=== PATIENT | female | born 1930 | race Caucasian/White ===

== ENCOUNTER 2018-04-10 19:19 | Inpatient (IN) | payer OTHER ==
[~2018-04-10] VITALS: Ht 165.1 cm; Wt 103.2 kg
[2018-04-10] MEDS ORDERED: SOD CHLORIDE 0.9% 1,000 ML IV STA (19:34)
--- NOTE | 2018-04-10 19:50 | ERD ---
ER Documentation Chief Complaint Chief Complaint HPI 87-year-old woman brought in by EMS from alf for altered mental status for at least 6 hours, she was last seen normal at the facility around 12 PM and then found sleeping and unresponsive at about 6 PM this evening. She has multiple medical conditions but is normally alert and oriented x2 at least and is able to ambulate normally without difficulty. She has had no recent fevers or chills, no vomiting or diarrhea. HPI was limited but supplemented by speaking to family members were later at the bedside, reviewing alf records and her past medical history, and speaking to EMS. ROS All systems reviewed and are negative except as per history of present illness. Allergies Allergies: Coded Allergies: No Known Allergy (Unverified , 04/10/18) PMhx/Soc CHF, dementia, anxiety, hypertension, hyperlipidemia, hypothyroidism, hyperlipidemia FmHx Family History: No diabetes Physical Exam Vitals Vital Signs Date Temp Pulse Resp B/P (MAP) Pulse Ox O2 O2 Flow FiO2 Time Delivery Rate 04/10/18 115 14 93 Nasal 100 21:50 Cannula 04/10/18 93 100 21:50 04/10/18 133 25 168/73 99 BIPAP 21:33 (104) 04/10/18 125 98 100 20:49 04/10/18 98.2 87 24 150/71 97 19:56 (97) Physical Exam GENERAL: Well-developed, well-nourished, appears dehydrated, nonverbal, afebrile HEENT: Dry mucous membranes, pupils minimally reactive and equal, no cervical spine deformity NEURO: Nonverbal, pupils minimally reactive, no facial asymmetry, unresponsive CARDIAC: Regular rate and rhythm, no murmurs rubs or gallops LUNGS: Poor breath sounds bilaterally ABDOMEN: Soft nontender, no guarding, no rigidity, no rebound, no psoas sign no obturator sign. SKIN: Warm and dry to touch, ecchymosis to both forearms PSYCH: Unable to assess Result Diagram: 04/10/18193104/10/181931 Results 24 hrs Laboratory Tests Test 04/10/18 19:32 04/10/18 19:38 04/10/18 20:07 04/10/18 21:30 White Blood 14.9 10^3/ul Count Red Blood Count 4.00 10^6/ul Hemoglobin 12.2 g/dl Hematocrit 42.1 % Mean 105.3 fl Corpuscular Volume Mean 30.5 pg Corpuscular Hemoglobin Mean 29.0 g/dl Corpuscular Hemoglobin Conc ent Red Cell 14.3 % Distribution Width Platelet Count 238 10^3/UL Mean Platelet 9.8 fl Volume Immature 1.800 % Granulocytes % Neutrophils % 82.2 % Lymphocytes % 9.2 % Monocytes % 6.4 % Eosinophils % 0.1 % Basophils % 0.3 % Nucleated Red 0.0 /100WBC Blood Cells % Immature 0.270 10^3/ul Granulocytes # Neutrophils # 12.2 10^3/ul Lymphocytes # 1.4 10^3/ul Monocytes # 1.0 10^3/ul Eosinophils # 0.0 10^3/ul Basophils # 0.1 10^3/ul Nucleated Red 0.0 10^3/ul Blood Cells # Prothrombin 11.6 Sec Time Prothrombin 0.9 Time Ratio INR 0.84 International Normalized Rati o Activated 31.6 Sec Partial Thrombo plast Time Sodium Level 142 mmol/L Potassium Level 4.5 mmol/L Chloride Level 93 mmol/L Carbon Dioxide 39 mmol/L Level Anion Gap 10 Blood Urea 17 mg/dl Nitrogen Creatinine 0.54 mg/dl Est Glomerular mL/min Filtrat Rate mL/min Glucose Level 206 mg/dl Calcium Level 9.1 mg/dl Total Bilirubin 0.4 mg/dl Direct 0.00 mg/dl Bilirubin Indirect 0.4 mg/dl Bilirubin Aspartate Amino 43 IU/L Transf (AST/SGO T) Alanine 17 IU/L Aminotransferas e (ALT/SGPT) Alkaline 59 IU/L Phosphatase Troponin I < 0.012 ng/ml Total Protein 7.4 g/dl Albumin 3.9 g/dl Globulin 3.50 g/dl Albumin/Globuli 1.11 n Ratio Lipase 25 U/L Thyroid 2.720 MIU/L Stimulating Hormone (TSH) Free Thyroxine 0.83 ng/dl Free 3.77 pg/ml Triiodothyronin e (T3) pg/mL Blood Gas Blood arterial Blood arterial Specimen Source Arterial Blood 04/10/2018 8:10: 04/10/2018 9:25 Date Drawn 58 PM :38 PM Arterial Blood 7.022 7.022 pH (Temp corrected ) Arterial Blood 183.9 mmhg 184.2 mmhg pCO2 (Temp correct) Arterial Blood 98.4 mmHG 119.9 mmHG pO2 (Temp corrected ) Arterial Blood 46.6 mmol/L 46.7 mmol/L HCO3 Arterial Blood 9.4 mmol/L 9.3 mmol/L Base Excess Arterial Blood 96.0 mmHG 97.3 mmHG Oxygen Saturati on Bharat Test ACCEPTAB ACCEPTAB Arterial Blood Right Radial Right Radial Gas Puncture Site Arterial 1.0 % 1.0 % Blood Carboxyhe moglobin Arterial Blood 0.3 % 0.3 % Methemoglobin Blood Gas A-a 430.7 mmHg 408.9 mmHg O2 Differential Oxyhemoglobin 94.8 % 96.0 % Percent Blood Gas 37.0 C 37.0 C Temperature Blood Gas 14 24 Actual Respiration Rat e Blood Gas MASK - NRB MASK - BIPAP Modality FiO2 100.0 % 100.0 % Blood Gas Susan HOANG MD, Critical Value D Read Back Blood Gas Susan CARTWRIGHT RCP Notified Whom Blood Gas 04/10/2018 8:15: 04/10/2018 9:33 Notified Time 22 PM :10 PM Urine Color YELLOW Urine Clarity CLOUDY Urine pH 6.0 Urine Specific 1.012 [place] Urine Ketones NEGATIVE mg/dL Urine Nitrite NEGATIVE mg/dL Urine Bilirubin NEGATIVE mg/dL Urine 2+ mg/dL Urobilinogen Urine Leukocyte 2+ Jl/ul Esterase Urine 6 /HPF Microscopic RBC Urine 33 /HPF Microscopic WBC Urine Hyaline FEW /HPF Casts Urine NEGATIVE mg/dL Hemoglobin Urine Glucose NEGATIVE mg/dL Urine Total NEGATIVE mg/dl Protein Blood Gas 24.0 Respiration Rate Blood Gas 20/8 IPAP/EPAP Ratio Current Medications Medications Dose Sig/Terri Start Time Status Last (Trade) Ordered Route PRN Stop Time Admin Dose Reason Admin Sodium 1,000 ml @ Q1H STAT 04/10/18 DC Chloride 1,000 mls/hr IV 19:34 04/10/18 20:54 Cefepime HCl 50 ml @ ONCE ONCE 04/10/18 DC 04/10/18 100 mls/hr IVPB 20:00 21:00 04/10/18 20:50 Enalaprilat 1.25 mg ONCE ONCE 04/10/18 DC (Vasotec Iv) IV 20:00 04/10/18 20:50 Digoxin 250 mcg ONCE ONCE 04/10/18 DC 04/10/18 (Digoxin) IV 21:00 21:00 04/10/18 21:01 Azithromycin 250 ml @ ONCE ONCE 04/10/18 DC 250 mls/hr IVPB 21:30 04/10/18 22:29 Morphine 100 ml @ 1 TITRATE IV 04/10/18 Sulfate/ mls/hr 23:00 Sodium Chloride Morphine 2 mg ONCE STAT 04/10/18 DC 04/10/18 Sulfate IV 22:32 22:52 (morphine) 04/10/18 22:38 Lorazepam 1 mg Q4H PRN 04/10/18 (Ativan) IV 23:00 AGITATION/ANX IETY Atropine 2 drop Q2H PRN 04/10/18 Sulfate SL PRN 23:00 (Atropine 1% SECRETIONS Oph) Procedures/MDM IV line was established patient was placed on nurse monitoring rhythm strip revealed a sinus rhythm at about 80 bpm with upright P and T waves. Patient was afebrile. Patient is DO NOT RESUSCITATE status. EKG performed, read by me revealed a normal sinus rhythm at 82 bpm, normal axis, right ventricular conduction delay with a QRS duration of 106 ms, no concerning ST elevations or depressions noted 1 view chest x-ray performed, read by me reveals congestion bilaterally pleural effusions, mass in the left lung versus infiltrate I placed the patient on BiPAP for altered mental status, dyspnea, CHF. Initial ABG revealed a pH of 7.0, PCO2 184, PO2 100, thus the need for BiPAP therapy. CBC reveals a leukocytosis of 15, electrolytes revealed dehydration, liver funct ion tests normal, troponin negative, thyroid panel within normal limits, urine analysis positive for infection. CT scan of the chest without contrast was performed revealing bilateral infiltrates and pulmonary edema. CT scan of the abdomen and pelvis was also performed, no acute infectious or inflammatory pathology was noted. Critical Care: Time: 52 minutes, this was time separate from other billable procedures. Treatments/Evaluations: Close monitoring and treatment of unstable vital si gns, cardiorespiratory, and neurologic status, while maintaining tight balance of fluid, respiratory, and cardiac interventions. Patient did develop atrial fibrillation with rapid ventricular rate and I treated her here with digoxin 0.25 mg IV x1 For pneumonia patient also received cefepime 1 g IV and azithromycin 500 mg IV. For hypertension she received enalapril 1.25 mg IV x1 Repeat ABG after BiPAP therapy was performed revealing a pH of 7.0, PCO2 184, PO2 120, patient remains encephalopathic and has severe hypercarbia I switched the patient to high flow therapy. Family was made aware of the patient's situation and they maintain DO NOT RESUSCITATE status and their preference and the patient's preference is for comfort measures Patient initially admitted to telemetry although family requested comfort measures only, patient to be started on morphine drip and admitted to [facility] Departure Diagnosis: Primary Impression: Acute encephalopathy Additional Impressions: Carbon dioxide narcosis Atrial fibrillation with RVR CHF (congestive heart failure) Heart failure type: diastolic Heart failure chronicity: acute on chronic Qualified Codes: I50.33 - Acute on chronic diastolic (congestive) heart failure Acute pneumonia Acute UTI Acute respiratory failure Respiratory failure complication: hypoxia and hypercapnia Qualified Codes: J96.01 - Acute respiratory failure with hypoxia; J96.02 - Acute respiratory failure with hypercapnia Hypertension Hypertension type: essential hypertension Qualified Codes: I10 - Essential (primary) hypertension Condition: Critical KASANDRA HOANG MD Apr 10, 2018 19:50
[2018-04-10] MEDS ORDERED: ENALAPRILAT 1.25 MG INJ IV ONE (20:00)
[2018-04-10] MEDS ORDERED: CEFEPIME 1GM/50 ML (PMX) 50 ML IVPB ONE (20:00)
[2018-04-10] MEDS ORDERED: DIGOXIN 500 MCG INJ IV ONE (21:00)
[2018-04-10] MEDS ORDERED: AZITHROMYCIN 500MG/NS (PMX) 250 ML IVPB ONE (21:30)
--- NOTE | 2018-04-10 22:31 | HP ---
Date/Time of Note Date/Time of Note DATE: 04/10/18 TIME: 22:30 Assessment/Plan VTE Prophylaxis SCD applied (from Nsg): No SCD contraindicated: other (Patient comfort care) Pharmacological prophylaxis: NA/contraindicated Pharm contraindication: low risk/ambulating Lines/Catheters IV [facility]from [facility] [place] Assessment/Plan Hospital Course This is a 87-year-old female being admitted to the [facility] floor for: Assessment: #1 Acute acute on chronic profound hypercapnic respiratory failure #2 Sepsis #3 healthcare catheter associated pneumonia #4 UTI #5 history of diastolic CHF #6 coronary artery disease #7 dementia #8 hypothyroidism #9 hypertension #10 macrocytosis Plan: Initially patient did receive antibiotics and fluids as well as BiPAP treatment. Patient did not improve on BiPAP and was switched to high flow oxygen. I did speak with the son at the bedside who was decision maker. Patient's POLST form stated that the patient was a DNR with comfort based treatment. I did update the son regarding the gravity of the patient's condition and her overall poor prognosis. Given that the patient's overall condition continued to worsen despite BiPAP and high flow oxygen along with fluids and antibiotics, the decision was made to withdraw care. The family did understand the overall condition and again the did not want the patient to suffer any longer so they agreed to comfort measures only. Patient will be started on a morphine drip, PRN Ativan for agitation, atropine drops for secretions. She will be made comfortable. She is CODE STATUS was changed to comfort measures only. Further treatment strategy will be implemented as per the clinical course. Result Diagram: 04/10/18193104/10/181931 Results 24hrs Laboratory Tests Test 04/10/18 19:32 04/10/18 19:38 04/10/18 20:07 04/10/18 21:30 White Blood 14.9 H Count Red Blood Count 4.00 L Hemoglobin 12.2 Hematocrit 42.1 Mean Corpuscular 105.3 H Volume Mean Corpuscular 30.5 Hemoglobin Mean Corpuscular 29.0 L Hemoglobin Lesley nt Red Cell 14.3 Distribution Width Platelet Count 238 Mean Platelet 9.8 Volume Immature 1.800 H Granulocytes % Neutrophils % 82.2 H Lymphocytes % 9.2 L Monocytes % 6.4 Eosinophils % 0.1 Basophils % 0.3 Nucleated Red 0.0 Blood Cells % Immature 0.270 H Granulocytes # Neutrophils # 12.2 H Lymphocytes # 1.4 Monocytes # 1.0 H Eosinophils # 0.0 Basophils # 0.1 Nucleated Red 0.0 Blood Cells # Prothrombin Time 11.6 L Prothrombin Time 0.9 Ratio INR 0.84 International Normalized Ratio Activated 31.6 Partial Thrombop last Time Sodium Level 142 Potassium Level 4.5 Chloride Level 93 L Carbon Dioxide 39 H Level Anion Gap 10 Blood Urea 17 Nitrogen Creatinine 0.54 Est Glomerular Filtrat Rate mL/min Glucose Level 206 Calcium Level 9.1 Total Bilirubin 0.4 Direct Bilirubin 0.00 Indirect 0.4 Bilirubin Aspartate Amino 43 Transf (AST/SGOT ) Alanine 17 Aminotransferase (ALT/SGPT) Alkaline 59 Phosphatase Troponin I < 0.012 Total Protein 7.4 Albumin 3.9 Globulin 3.50 H Albumin/Globulin 1.11 Ratio Lipase 25 Thyroid 2.720 Stimulating Hormone (TSH) Free Thyroxine 0.83 L Free 3.77 Triiodothyronine (T3) pg/mL Blood Gas Blood arterial Blood arterial Specimen Source Arterial Blood 04/10/2018 8:10: 04/10/2018 9:25: Date Drawn 58 PM 38 PM Arterial Blood 7.022 *L 7.022 *L pH (Temp corrected) Arterial Blood 183.9 *H 184.2 *H pCO2 (Temp correct) Arterial Blood 98.4 H 119.9 H pO2 (Temp corrected) Arterial Blood 46.6 *H 46.7 *H HCO3 Arterial Blood 9.4 H 9.3 H Base Excess Arterial Blood 96.0 97.3 Oxygen Saturatio n Bharat Test ACCEPTAB ACCEPTAB Arterial Blood Right Radial Right Radial Gas Puncture Site Arterial 1.0 1.0 Blood Carboxyhem oglobin Arterial Blood 0.3 0.3 Methemoglobin Blood Gas A-a O2 430.7 H 408.9 H Differential Oxyhemoglobin 94.8 96.0 Percent Blood Gas 37.0 37.0 Temperature Blood Gas Actual 14 24 Respiration Rate Blood Gas MASK - NRB MASK - BIPAP Modality FiO2 100.0 100.0 Blood Gas Susan HOANG MD, D MD Critical Value Read Back Blood Gas Susan CARTWRIGHT RCP Notified Whom Blood Gas 04/10/2018 8:15: 04/10/2018 9:33: Notified Time 22 PM 10 PM Urine Color YELLOW Urine Clarity CLOUDY A Urine pH 6.0 Urine Specific 1.012 [place] Urine Ketones NEGATIVE Urine Nitrite NEGATIVE Urine Bilirubin NEGATIVE Urine 2+ H Urobilinogen Urine Leukocyte 2+ H Esterase Urine 6 H Microscopic RBC Urine 33 H Microscopic WBC Urine Hyaline FEW A Casts Urine Hemoglobin NEGATIVE Urine Glucose NEGATIVE Urine Total NEGATIVE Protein Blood Gas 24.0 Respiration Rate Blood Gas 20/8 IPAP/EPAP Ratio HPI/ROS Admit Date/Time Admit Date/Time Hx of Present Illness cc: almaryam, This is a 87-year-old woman brought in by EMS from [facility] for altered mental status for at least 6 hours, she was last seen normal at the facility around 12 PM and then found sleeping and unresponsive at about 6 PM this evening. She has multiple medical conditions but is normally alert and oriented x2 at least, though her ambulation is limited. She has had no recent fevers or chills, no vomiting or diarrhea. Her son was present at the bedside who is decision maker. Patient was noted to be in respiratory distress with agonal breathing when she arrived and remained unresponsive. She was put on BiPAP. Her ABG was significant for severe hypercapnia. Repeat ABG within 2 hours did not show any improvement of her hypercarbia. Upon my examination at the bedside the patient remained nonresponsive. Vigorous sternal rub was performed however patient remained obtunded and unresponsive. She did appear to be agonal breathing. Review of the chest x-ray and the chest CT revealed pneumonia. Allergies: NKDA Medications: See MAR ROS Subjective hx not possible: pt critical (Obtunded, nonresponsive) PMH/Family/Social Past Medical History Hypertension, coronary artery disease, diastolic heart failure, dementia, hypothyroidism Coded Allergies: No Known Allergy (Unverified , 04/10/18) Past Surgical History Neck surgery, knee surgery, back surgery Family History Significant Family History: no pertinent family hx Social History Alcohol Use: none Smoking Status: Never smoker Drug Use: none Exam/Review of Systems Vital Signs Vitals Vital Signs Date Temp Pulse Resp B/P (MAP) Pulse Ox O2 O2 Flow FiO2 Time Delivery Rate 04/10/18 115 14 93 Nasal 100 21:50 Cannula 04/10/18 168/73 21:33 (104) 04/10/18 98.2 19:56 Exam Exam General: Obtunded, nonresponsive to vigorous sternal rub, on high flow oxygen at the current time HEENT: Atraumatic, normocephalic. The pupils are equal, round and reactive. Extraocular motor are intact Neck: Supple with full range of motion. No rigidity or meningismus Chest: Nontender Lungs: Coarse breath sounds bilaterally, agonal breathing Heart: Irregularly irregular Abdomen: Obese soft , nontender, nondistended , bowel sounds are present. No guarding no rebound tenderness , No masses or organomegaly. No costovertebral temporal angle mass Extremities: Normal to inspection, no edema no cyanosis Neurologic: Obtunded, nonresponsive to vigorous sternal rub. Further neurological exam limited secondary to clinical condition Additional Comments PROCEDURE: XR Chest. CLINICAL INDICATION: Pain. TECHNIQUE: Single frontal chest x-ray. COMPARISON: None. FINDINGS: Patient is rotated left. Heart is markedly enlarged. Aorta is prominent. Pulmonary vessels are top normal in caliber. There are atherosclerotic calcifications of the aorta. Moderate. Left-sided pleural effusion with basilar atelectasis versus infiltrate. There is a small right pleural effusion with basilar atelectasis versus infiltrate. There is no pneumothorax. Bones are osteopenic.. IMPRESSION: Cardiomegaly. Pulmonary vessels top normal caliber. Left greater right pleural effusions with associated since versus infiltrate. Prominent aorta. Aneurysm cannot be excluded. RPTAT: [facility] .Henry Marcano MD, MD Date Time Electronically viewed and signed by .Henry Marcano MD, MD on 04/10/2018 20:11 .K/ CC: KASANDRA HOANG MD [id number] PROCEDURE: CT Chest Without Intravenous Contrast CLINICAL INDICATION: Altered mental status. TECHNIQUE: Axial computed tomography images of the chest without intravenous contrast. Sagittal and coronal reformatted images were created and reviewed. CTDIvol (mGy) = 19.72; total DLP (mGy-cm) = 1504.00. This CT exam was performed using one or more of the following dose reduction techniques: automated exposure control, adjustment of the mA and/or kV according to patient size, and/or use of iterative reconstruction technique. DICOM images are available. COMPARISON: None FINDINGS: LUNGS: Complete consolidation of the right lower lobe, suspicious for pneumonia. Partial consolidation versus atelectasis in the inferior lingula and in the posterior medial left lower lobe. PLEURAL SPACE: Unremarkable. No pneumothorax. No significant effusion. HEART: Moderate to severe cardiomegaly. Small pericardial effusion. BONES/JOINTS: Degenerative spine changes are noted. No acute fracture. No dislocation. SOFT TISSUES: Unremarkable. VASCULATURE: Thoracic aorta is ectatic and atherosclerotic. LYMPH NODES: Unremarkable. No enlarged lymph nodes. IMPRESSION: 1. Complete consolidation of the right lower lobe, suspicious for pneumonia. 2. Partial consolidation versus atelectasis in the inferior lingula and in the posterior medial left lower lobe. 3. Moderate to severe cardiomegaly. 4. Small pericardial effusion. RPTAT: [facility] [address] Daniela Mosqueda, Physician [employer] Date Time Electronically viewed and signed by Dnaiela Mosqueda Physician [employer] on 04/10/2018 20:56 RmC/ CC: KASANDRA HOANG MD [id number] PROCEDURE: CT Brain without contrast. CLINICAL INDICATION: Altered level of consciousness. TECHNIQUE: A CT of the brain was performed on a multislice detector CT scanner utilizing axial sections from the skull base through the vertex without contrast. Images were reviewed on a high-resolution PACS workstation. Exam CTDlvol = 39 mGy and DLP = 714 mGy-cm. One of the following 3 dose reduction techniques were used: Automated exposure control; adjustment of the mA and/or kV according to patient size; or use of iterative reconstruction technique. DICOM images are available. COMPARISON: None available FINDINGS: There is age appropriate central and peripheral atrophy. There is no midline shift. There are atherosclerotic vascular calcifications. There is a mild degree of supratentorial periventricular and subcortical white matter hypodensities. There is no definite acute stroke. There is no mass lesion. There is no intracranial hemorrhage or abnormal extra-axial fluid collection. There is minimal right maxillary sinus mucosal thickening.. IMPRESSION: 1. No acute intracranial abnormality. 2. Nonspecific white matter changes most commonly seen with microvascular ischemic disease. RPTAT: [facility] .Henry Marcano MD, MD Date Time Electronically viewed and signed by .Henry Marcano MD, on 04/10/2018 20:08 .K/ CC: KASANDRA HOANG MD [id number] DOM JACQUES Apr 10, 2018 22:31
[2018-04-10] MEDS ORDERED: morphine 2 MG INJ IV STA (22:32)
[2018-04-10] MEDS ORDERED: morphine (DRIP) 100 MG/100 ML 100 ML IV SCH (23:00)
[2018-04-10] MEDS ORDERED: ATROPINE 1% 5 ML OPH SL PRN (23:00)
[2018-04-10] MEDS ORDERED: LORAZEPAM 2 MG INJ IV PRN (23:00)
[2018-04-11 01:49] VITALS: Ht 165.1 cm; Wt 103.2 kg
[2018-04-11 02:00] VITALS: BP 115/57; PULSE 72; RESP 16
[2018-04-11] MEDS ORDERED: NACL 0.9% 3 ML SYG IV SCH (02:30)
--- NOTE | 2018-04-11 04:01 | EN ---
Date/Time of Note Date/Time of Note DATE: 04/11/18 TIME: 04:00 Event Note Medicine Medicine Event Note Pronouncement note: Patient was seen and examined at the bedside. Patient was nonresponsive to vigorous sternal rub. Pupils fixed and nonreactive to light bilaterally. No chest rise was observed. No heart sounds were appreciated on auscultation. Patient was pronounced at approximately 3:33 AM. Family was present at the bedside. Primary team aware. DOM JACQUES Apr 11, 2018 04:01
--- NOTE | 2018-04-11 04:04 | DES ---
Date/Time of Note Date/Time of Note DATE: 04/11/18 TIME: 04:01 Discharge/ Summary Admission/Discharge Info Admit Date/Time Apr 10, 2018 at 22:32 Date/Time April 11, 2018 at 3:33 AM Final Diagnosis 1. 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 Sepsis secondary to pneumonia/urinary tract infection 3. Healthcare associated pneumonia 4. Urinary tract infection Preliminary Cause of 1. 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 Sepsis secondary to pneumonia/urinary tract infection 3. Healthcare associated pneumonia 4. Urinary tract infection Admit History cc: aloc, This is a 87-year-old woman brought in by EMS from [facility] for altered mental status for at least 6 hours, she was last seen normal at the facility around 12 PM and then found sleeping and unresponsive at about 6 PM t his evening. She has multiple medical conditions but is normally alert and oriented x2 at least, though her ambulation is limited. She has had no recent fevers or chills, no vomiting or diarrhea. Her son was present at the bedside who is decision maker. Patient was noted to be in respiratory distress with agonal breathing when she arrived and remained unresponsive. She was put on BiPAP. Her ABG was significant for severe hypercapnia. Repeat ABG within 2 hours did not show any improvement of her hypercarbia. Upon my examination at the bedside the patient remained nonresponsive. Vigorous sternal rub was performed however patient remained obtunded and unresponsive. She did appear to be agonal breathing. Review of the chest x-ray and the chest CT revealed pneumonia. Allergies: NKDA Medications: See MAR Hospital Course This is a 87-year-old female [facility] for: Assessment: #1 Acute profound hypercapnic respiratory failure #2 Sepsis #3 healthcare catheter associated pneumonia #4 UTI #5 history of diastolic CHF #6 coronary artery disease #7 dementia #8 hypothyroidism #9 hypertension Plan: Initially patient did receive antibiotics and fluids as well as BiPAP treatment. Patient did not improve on BiPAP and was switched to high flow oxygen. I did speak with the son at the bedside who was decision maker. Patient's POLST form stated that the patient was a DNR with comfort based treatment. I did update the son regarding the gravity of the patient's condition and her overall poor prognosis. Given that the patient's overall condition continued to worsen despite BiPAP and high flow oxygen along with fluids and antibiotics, the decision was made to withdraw care. The family did understand the overall condition and again the did not want the patient to suffer any longer so they agreed to comfort measures only. Patient will be started on a morphine drip, PRN Ativan for agitation, atropine drops for secretions. She will be made comfortable. She is CODE STATUS was changed to comfort measures only. Hospital course: Patient was transitioned from the ER to comfort measures only. Morphine drip was initiated for comfort. PRN Ativan and atropine were also initiated. Patient was taken to the [facility] floor. She was kept comfortable. I was notified by the RN that the patient may have passed. Patient was seen and examined at the bedside. Patient was pronounced at approximately 3:33 AM. Family was present at the bedside. Pending Labs/Cultures Laboratory Tests Test 04/10/18 19:32 04/10/18 19:38 04/10/18 20:07 04/10/18 21:30 White Blood 14.9 Count 10^3/ul (4.8-10 .8) Red Blood 4.00 Count 10^6/ul (4.20-5 .40) Hemoglobin 12.2 g/dl (12.0-16.0 ) Hematocrit 42.1 % (37.0-47.0) Mean 105.3 Corpuscular fl (82.0-101.0) Volume Mean 30.5 Corpuscular pg (29.0-33.0) Hemoglobin Mean 29.0 Corpuscular g/dl (32.0-37.0 Hemoglobin Conc ) ent Red Cell 14.3 Distribution % (11.5-14.5) Width Platelet Count 238 10^3/UL (140-41 5) Mean Platelet 9.8 Volume fl (7.4-10.4) Immature 1.800 Granulocytes % % (0.001-0.429) Neutrophils % 82.2 % (39.0-77.0) Lymphocytes % 9.2 % (15.0-51.0) Monocytes % 6.4 % (0.0-11.0) Eosinophils % 0.1 % (0.0-7.0) Basophils % 0.3 % (0.0-2.0) Nucleated Red 0.0 Blood Cells % /100WBC (0.0-0. 0) Immature 0.270 Granulocytes # 10^3/ul (0.0-0. 031) Neutrophils # 12.2 10^3/ul (1.6-7. 5) Lymphocytes # 1.4 10^3/ul (0.8-2. 9) Monocytes # 1.0 10^3/ul (0.3-0. 9) Eosinophils # 0.0 10^3/ul (0.0-0. 5) Basophils # 0.1 10^3/ul (0.0-0. 1) Nucleated Red 0.0 Blood Cells # 10^3/ul (0.0-0. 0) Prothrombin 11.6 Time Sec (11.9-14.9) Prothrombin 0.9 Time Ratio INR 0.84 International Normalized Rati o Activated 31.6 Partial Thrombo Sec (23.0-35.0) plast Time Sodium Level 142 mmol/L (135-144 ) Potassium 4.5 Level mmol/L (3.5-5.1 ) Chloride Level 93 mmol/L (97-110) Carbon Dioxide 39 Level mmol/L (21-31) Anion Gap 10 (5-13) Blood Urea 17 mg/dl (7-20) Nitrogen Creatinine 0.54 mg/dl (0.44-1.0 0) Est Glomerular mL/min (>60) Filtrat Rate mL/min Glucose Level 206 mg/dl (70-220) Calcium Level 9.1 mg/dl (8.4-10.2 ) Total 0.4 Bilirubin mg/dl (0.2-1.3) Direct 0.00 Bilirubin mg/dl (0.00-0.2 0) Indirect 0.4 Bilirubin mg/dl (0-1.1) Aspartate Amino 43 IU/L (15-46) Transf (AST/SGO T) Alanine 17 IU/L (13-69) Aminotransferas e (ALT/SGPT) Alkaline 59 Phosphatase IU/L (42-121) Troponin I < 0.012 ng/ml (0.000-0. 120) Total Protein 7.4 g/dl (6.1-8.1) Albumin 3.9 g/dl (3.3-4.9) Globulin 3.50 g/dl (1.3-3.2) Albumin/Globuli 1.11 n Ratio Lipase 25 U/L (23-300) Thyroid 2.720 Stimulating MIU/L (0.465-4. Hormone (TSH) 680) Free Thyroxine 0.83 ng/dl (0.85-1.9 3) Free 3.77 Triiodothyronin pg/ml (2.77-5.2 e (T3) pg/mL 7) Blood Gas Blood arterial Blood arterial Specimen Source Arterial Blood 04/10/2018 8:10 04/10/2018 9:25 Date Drawn :58 PM :38 PM Arterial Blood 7.022 (7.350-7 7.022 (7.350-7 pH .450) .450) (Temp corrected ) Arterial Blood 183.9 184.2 pCO2 mmhg (35-45) mmhg (35-45) (Temp correct) Arterial Blood 98.4 119.9 pO2 mmHG (80-90.0) mmHG (80-90.0) (Temp corrected ) Arterial Blood 46.6 46.7 HCO3 mmol/L (22.0-2 mmol/L (22.0-2 6.0) 6.0) Arterial Blood 9.4 9.3 Base Excess mmol/L (-3.0-3 mmol/L (-3.0-3 ) ) Arterial Blood 96.0 97.3 Oxygen Saturati mmHG (95.0-100 mmHG (95.0-100 on .0) .0) Bharat Test ACCEPTAB ACCEPTAB Arterial Blood Right Radial Right Radial Gas Puncture Site Arterial 1.0 1.0 Blood Carboxyhe % (0.0-3.0) % (0.0-3.0) moglobin Arterial Blood 0.3 0.3 Methemoglobin % (0.0-1.5) % (0.0-1.5) Blood Gas A-a 430.7 408.9 O2 mmHg (7.0-24.0 mmHg (7.0-24.0 Differential ) ) Oxyhemoglobin 94.8 96.0 Percent % (93.0-99.0) % (93.0-99.0) Blood Gas 37.0 C 37.0 C Temperature Blood Gas 14 24 Actual Respiration Rat e Blood Gas MASK - NRB MASK - BIPAP Modality FiO2 100.0 % 100.0 % Blood Gas VIKTOR HOANG, Critical Value D MD Susan GOMES Read Back Blood Gas Susan CARTWRIGHT RCP Notified Whom Blood Gas 04/10/2018 8:15 04/10/2018 9:33 Notified Time :22 PM :10 PM Urine Color YELLOW (YELLOW ) Urine Clarity CLOUDY (CLEAR) Urine pH 6.0 (5.0-9.0) Urine Specific 1.012 (1.003-1 [place] .030) Urine Ketones NEGATIVE mg/dL (NEGATIV E) Urine Nitrite NEGATIVE mg/dL (NEGATIV E) Urine NEGATIVE Bilirubin mg/dL (NEGATIV E) Urine 2+ Urobilinogen mg/dL (NEGATIV E) Urine Leukocyte 2+ Esterase Jl/ul (NEGATI VE) Urine 6 /HPF (0-5) Microscopic RBC Urine 33 /HPF (0-5) Microscopic WBC Urine Hyaline FEW /HPF Casts (NONE SEEN) Urine NEGATIVE Hemoglobin mg/dL (NEGATIV E) Urine Glucose NEGATIVE mg/dL (NEGATIV E) Urine Total NEGATIVE Protein mg/dl (NEGATIV E) Blood Gas 24.0 Respiration Rate Blood Gas 20/8 IPAP/EPAP Ratio DOM JACQUES Apr 11, 2018 04:04
== END 2018-04-11 06:14 | disposition expired | DRG 871 ==
LOC: E/R 19:19 → PP2 22:32 → EDBEDREQSVC 23:08 → EDBEDREQ 23:08
PROVIDERS: ADMIT Family Medicine; ATTEND Family Medicine
DX: A41.9 Sepsis, unspecified organism (principal); J18.9 Pneumonia, unspecified organism; J96.22 Acute and chronic respiratory failure with hypercapnia; I50.33 Acute on chronic diastolic (congestive) heart failure; N39.0 Urinary tract infection, site not specified; I11.0 Hypertensive heart disease with heart failure; F03.90 Unspecified dementia, unspecified severity, without behavioral disturbance, psychotic disturbance, mood disturbance, and anxiety; Y95 Nosocomial condition; E03.9 Hypothyroidism, unspecified; I25.10 Atherosclerotic heart disease of native coronary artery without angina pectoris; E78.5 Hyperlipidemia, unspecified; F41.9 Anxiety disorder, unspecified
CPT/HCPCS: 36415; 36600; 70450; 71045; 71250; 74176; 80053; 81001; 82803; 83690; 84439; 84443; 84481; 84484; 85025; 85610; 85730; 87040; 87086; 93005; 94660; 96374; 96375; J0692; J2270; J7030